=== PATIENT | male | born 1965 | race Caucasian/White ===

== ENCOUNTER 2020-05-31 23:43 | Emergency (ER) | payer OTHER ==
--- NOTE | 2020-05-31 23:55 | ER Document Report ---
ED Medical Screen (RME) - General Chief Complaint: S/S of Possible Stroke Stated Complaint: WEAKNESS Time Seen by Provider: 05/31/20 23:46 Mode of Arrival: Wheelchair Information source: Relative Notes: 54-year-old male presented to ED for complaint of needs to the left side since around lunchtime yesterday. states he has been confused dragging his left leg slurring his words and unable to concentrate and figure out how to eat with a knife and fork. She states that tonight he tried to write an email to work and after about 20 minutes he had written 2 words with a lot of strange letters. She states that he can answer some things appropriately and then unable to get the proper words out after that. She states it is getting worse and so she brought into the emergency room. I have greeted and performed a rapid initial assessment of this patient. A comprehensive ED assessment and evaluation of the patient, analysis of test results and completion of medical decision making process will be conducted by an additional ED providers.
--- NOTE | 2020-06-01 00:22 | ER Document Report ---
ED General - General Chief Complaint: S/S of Possible Stroke Stated Complaint: WEAKNESS Time Seen by Provider: 05/31/20 23:46 Primary Care Provider: MEHRAN ALANIZ [Primary Care Provider] - Follow up as needed Mode of Arrival: Wheelchair - [facility] Notes: Patient is a 54-year-old male who presents to the ER for further evaluation. 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 He is here visiting from [place], on vacation. They are staying on [address]. The patient had been in the ocean yesterday around lunchtime. During the afternoon, patient's notes that he was stumbling, seemed to have difficulty getting upstairs. They thought it may just be fatigue/dizziness from being in the water. She states that he seems to be dragging his left leg behind him when he walks. She states that he was writing an email. It took him over 20 minutes to type four lines of text. There were random capital letters, misspelled words, which is completely out of character for the patient. He also has been acting very flat, normally he is very animated per the . The patient himself states he has not really noticed any difference. He does have a mild frontal headache. He states that he has had this for the last several weeks, was diagnosed with a "sinus infection" by his primary care provider. - Related Data Allergies/Adverse Reactions: No Known Allergies Allergy (Unverified 06/01/20 01:56) Home Medications: vitamin c,d, glucosamine, eyedrops for glaucoma Past Medical History - General Information source: Patient, Relative - Social History Smoking Status: Current Every Day Smoker Chew tobacco use (# tins/day): Yes Frequency of alcohol use: Social Family History: DM, Hypertension EENT Medical History: Reports: Eyes - Glaucoma Review of Systems - Review of Systems Constitutional: No symptoms reported EENT: No symptoms reported Cardiovascular: No symptoms reported Respiratory: No symptoms reported Gastrointestinal: No symptoms reported Genitourinary: No symptoms reported Musculoskeletal: No symptoms reported Skin: No symptoms reported Neurological/Psychological: See HPI Physical Exam - Vital signs Vitals: Temp Pulse Resp BP Pulse Ox 98.2 F 76 16 148/65 H 98 05/31/20 23:53 05/31/20 23:53 05/31/20 23:53 05/31/20 23:53 05/31/20 23:53 - Notes Notes: This is a very pleasant 54-year-old male who appears his stated age, no acute distress. He has a flat affect, but is cooperative with examiner. Vital signs reviewed, please refer to chart. Head is normocephalic, atraumatic. Pupils equ al round, reactive to light. Neck is supple without meningismus. Heart is regular rate and rhythm. Lungs are clear to auscultation bilaterally. Abdomen is soft, nontender, normoactive bowel sounds throughout. Extremities without cyanosis, clubbing. Posterior calves are nontender. Peripheral pulses are equal. Skin is warm and dry. Patient is awake, alert, oriented x3. Cranial nerves II - XII are grossly intact without focal neurological deficits. Strength is plus 5 out of 5 right upper and right lower extremity. 4 out of 5 left upper and left lower extremity strength. Positive pronator drift. Sensation is intact. Mild hyperreflexia on the left at brachioradialis and patellar reflexes. Intact [id number], rapid alternating movements, [id number]. Patient started having difficulty with serial sevens once he reached the fifth. Course - Re-evaluation Re-evalutation: 06/01/20 00:28 Patient presents to the emergency department for evaluation. Given his symptoms, he was sent straight back for head CT, and a stroke protocol was instituted. Laboratory investigations were ordered. I have personally reviewed this patient's CT scan, and worried about the possibility of a mass. Awaiting formal radiology read. Currently, patient is on the monitor. His vital signs are unremarkable. He is stable, awaiting labs and imaging reports, we will continue to monitor. 06/01/20 00:56 I received a phone call at 034 from radiology. Finding of a brain tumor was reported, with edema and significant mass-effect. Decadron and Keppra were ordered. I went in and notified the patient as well as his . We will work on transfer at this time. 06/01/20 01:07 I did notify the patient's children about this finding. They concur with transfer to [facility] if possible. 06/01/20 01:35 Awaiting phone call from [facility] physician. Notified by nursing the patient is vomiting. Zofran 8 mg ordered. QT interval is not prolonged on EKG. 06/01/20 01:[address] Foster, on-call neurosurgeon at [facility]. He accepted the patient in transfer to ICU. Currently awaiting bed assignment. 06/01/20 04:45 Patient remained stable. Neurologically no significant change. His nausea has resolved. As per discussion with Dr. Foster, every 6 hours Decadron is ordered. 06/01/20 05:28 Patient remains stable. Family notified that transport not likely until at least after change of shift. - Vital Signs Vital signs: Temp Pulse Resp BP Pulse Ox 98.2 F 66 15 129/73 H 98 06/01/20 05:13 06/01/20 03:00 06/01/20 05:01 06/01/20 05:01 06/01/20 05:01 - Laboratory Result Diagrams: 06/01/20 00:15 06/01/20 00:15 Laboratory results interpreted by me: 06/01/20 06/01/20 06/01/20 00:14 00:15 00:15 WBC 12.4 H Lymph % (Auto) 8.3 L Absolute Neuts (auto) 10.4 H Seg Neutrophils % 83.3 H Sodium 134.7 L Glucose 123 H POC Glucose 111 H - Diagnostic Test Radiology reviewed: Image reviewed, Reports reviewed Radiology results interpreted by me: 06/01/20 00:57 Chest X-Ray 05/31/20 23:53 IMPRESSION: Underlying hyperinflation. Lungs are clear copyright 2010 [employer]- All Rights Reserved Head CT 05/31/20 23:53 IMPRESSION: Right frontal lobe mass which most likely is intra-axial and measures approximately 3.7 x 3.4 x 3.8 cm. This is associated with extensive vasogenic edema and right to left subfalcine herniation. Further assessment with contrast-enhanced MRI is recommended. - EKG Interpretation by Me Additional EKG results interpreted by me: 06/01/20 00:57 Sinus mechanism with a rate of 71 bpm. Normal axis, IVCD. Incomplete right bundle branch block. Nonspecific ST changes, but no acute elevations concerning for infarction. No old studies available for comparison. Critical Care Note - Critical Care Note Total time excluding time spent on procedures (mins): 40 Discharge - Discharge Clinical Impression: Brain tumor Condition: Stable Disposition: [facility] Admitting Provider: Dr. Foster Referrals: LOCALMD,NO [Primary Care Provider] - Follow up as needed
--- NOTE | 2020-06-01 00:23 | RADIOLOGY REPORT (SQ) ---
CT HEAD WITHOUT IV CONTRAST CLINICAL STATEMENT: Stroke alert TECHNIQUE: Axial CT images from skull base to vertex without IV contrast. This exam was performed according to our departmental dose optimization program, and includes the following measures where applicable: automated exposure control, adjustment of the mAs and/or kVp according to patient size and/or exam, and an iterative reconstruction algorithm. COMPARISON: None. FINDINGS: Extensive vasogenic edema seen in the right frontal and anterior temporal lobe. There is a masslike area seen in the frontal lobe adjacent to the falx in the midline. This area measures approximately 3.7 x 3.4 x 3.8 cm. Cm. This is associated 10 mm of right to left subfalcine herniation with displacement of the right lateral ventricle across midline. No hemorrhage. Basilar cisterns are patent. No other lesions are seen. Findings are concerning for neoplasm. Further assessment with contrast-enhanced brain MRI is recommended. Calvaria: The skull base and calvaria demonstrate no abnormality. Paranasal sinuses: Visualized portions of the orbits and paranasal sinuses are unremarkable. skull base: Unremarkable IMPRESSION: Right frontal lobe mass which most likely is intra-axial and measures approximately 3.7 x 3.4 x 3.8 cm. This is associated with extensive vasogenic edema and right to left subfalcine herniation. Further assessment with contrast-enhanced MRI is recommended.
--- NOTE | 2020-06-01 00:25 | RADIOLOGY REPORT (SQ) ---
EXAM DESCRIPTION: XR CHEST 1 VIEW COMPLETED DATE/TME: 05/31/2020 23:53 CLINICAL HISTORY: 54 years, Male, Stroke alert COMPARISON: None. NUMBER OF VIEWS: 1 TECHNIQUE: Portable chest LIMITATIONS: None. FINDINGS: The heart size is normal. Lungs are hyperinflated but clear. No pneumothorax IMPRESSION: Underlying hyperinflation. Lungs are clear copyright 2011 [employer]- All Rights Reserved
[2020-06-01 00:30] LABS: ABSOLUTE BASOPHILS # (AUTO) 0.1 10^3/uL (0.0-0.2); ABSOLUTE EOSINOPHILS # (AUTO) 0.1 10^3/uL (0.0-0.6); ABSOLUTE MONOCYTES (AUTO) 0.9 10^3/uL (0.1-1.4); ABSOLUTE NEUT (AUTO) 10.4 10^3/uL (1.7-8.2); BASOPHILS % (AUTO) 0.7 % (0-2); EOSINOPHILS % (AUTO) 0.5 % (0-6); HEMATOCRIT 40.5 % (37.9-51.0); HEMOGLOBIN 14.1 g/dL (13.5-17.0); LYMPHOCYTES % (AUTO) 8.3 % (13-45); MEAN CORPUSCULAR HEMOGLOBIN 32.2 pg (27.0-33.4); MEAN CORPUSCULAR HGB CONC 34.8 g/dL (32.0-36.0); MEAN CORPUSCULAR VOLUME 93 fl (80-97); MONOCYTES % (AUTO) 7.2 % (3-13); PLATELET COUNT 399 10^3/uL (150-450); RED BLOOD COUNT 4.37 10^6/uL (4.35-5.55); RED CELL DISTRIBUTION WIDTH 13.6 % (11.5-14.0); SEGMENTED NEUTROPHILS % (AUTO) 83.3 % (42-78); TOTAL CELLS COUNTED % (AUTO) 100 %; WHITE BLOOD COUNT 12.4 10^3/uL (4.0-10.5)
[2020-06-01] MEDS ORDERED: DEXAMETHASONE SOD PHOS INJ 10 MG/1 ML VIAL IV ONE (00:34)
[2020-06-01] MEDS ORDERED: LEVETIRACETAM 1000 MG/NACL-ISO 1,000 MG/100 ML RTUPB IV ONE (00:34)
[2020-06-01 00:39] LABS: INTERNATIONAL RATION (INR) 1.03; PARTIAL THROMBOPLASTIN TIME 31.9 SEC (23.5-35.8); PROTHROMBIN TIME 13.7 SEC (11.4-15.4)
[2020-06-01 00:55] LABS: ALBUMIN 4.5 g/dL (3.5-5.0); ALKALINE PHOSPHATASE 77 U/L (38-126); ANION GAP 9 (5-19); ASPARTATE AMINO TRANSFERASE 18 U/L (17-59); BILIRUBIN,DIRECT 0.3 mg/dL (0.0-0.4); BILIRUBIN,TOTAL 0.7 mg/dL (0.2-1.3); BLOOD UREA NITROGEN 11 mg/dL (7-20); CALCIUM 9.3 mg/dL (8.4-10.2); CARBON DIOXIDE 28 mmol/L (22-30); CHLORIDE 98 mmol/L (98-107); CREATINE KINASE 88 U/L (55-170); GLUCOSE 123 mg/dL (75-110); POTASSIUM 4.3 mmol/L (3.6-5.0); TOTAL PROTEIN 7.2 g/dL (6.3-8.2)
[2020-06-01] MEDS ORDERED: ONDANSETRON HCL INJ/PF 4 MG/2 ML SDV IV ONE (01:35)
[2020-06-01 01:41] LABS: CREATINE KINASE MB 1.07 ng/mL (<4.55)
[2020-06-01 01:42] LABS: TROPONIN I < 0.012 ng/mL
[2020-06-01] MEDS ORDERED: ONDANSETRON HCL INJ/PF 4 MG/2 ML SDV IV PRN (05:28)
[2020-06-01] MEDS ORDERED: DEXAMETHASONE SOD PHOSPHATE INJ 4 MG/1 ML VIAL IV SCH (06:00)
--- NOTE | 2020-06-01 06:24 | EKG REPORT ---
SEVERITY:- ABNORMAL ECG - SINUS RHYTHM INCOMPLETE RIGHT BUNDLE BRANCH BLOCK PROBABLE INFERIOR INFARCT, AGE INDETERMINATE : Confirmed by: Sunny Garcia MD 01-Jun-2020 06:24:11
[2020-06-01 07:54] VITALS: BP 128/69
[2020-06-01] MEDS ORDERED: LATANOPROST 0.005% OPH SOLN 2.5 ML OU SCH (10:00)
== END 2020-06-01 08:00 | disposition short-term general hospital (02) ==
LOC: ER 23:43
DX: D49.6 Neoplasm of unspecified behavior of brain (principal); R51 Headache; G93.6 Cerebral edema; R11.2 Nausea with vomiting, unspecified; I45.10 Unspecified right bundle-branch block; H40.9 Unspecified glaucoma; Z79.899 Other long term (current) drug therapy
CPT/HCPCS: 93005; 96376; 99285; 96374; 96375; 36415; 82553; 82962; 82550; 85025; 85610; 85730; 80053; 84484; 71045; 70450; 93010; J1100 ×2; J2405; J1953; J3490